=== PATIENT | female | born 1995 | race Caucasian/White ===

== ENCOUNTER 2018-07-15 15:03 | Emergency (ER) | payer SELFPAY ==
--- NOTE | 2018-07-15 15:27 | PDOC ---
Rapid Medical Evaluation Time Seen by Provider: 07/15/18 15:23 Medical Evaluation: I have performed a brief in-person evaluation of this patient. The patient presents with a chief complaint of: difficulty breathing when she is in the cold air. Previous hx of asthma. she does not have an inhaler. went to [facility] for similar symptoms 3 weeks ago - "they ran tests - no results yet - no medicine" Pertinent physical exam findings: CTAB I have ordered the following: nothing The patient will proceed to the ED for further evaluation. Discharge Disposition - Diagnosis Asthma - Referrals - Patient Instructions - Post Discharge Activity
[2018-07-15 15:29] VITALS: BP 110/71; PULSE 68; TEMP 98.7; BMI 22.4
--- NOTE | 2018-07-15 16:34 | PDOC ---
History of Present Illness - General History Source: Patient Exam Limitations: No Limitations - History of Present Illness Initial Comments: 07/15/18 16:48 The patient is a 23 year old female with no significant PMH, who presents to the emergency department with shortness of breath for the past several weeks. Patient is complaining of intermittent shortness of breath when walking outdoors in cold weather. Patient states she came from [place] a couple weeks ago and had been complaining of the same symptoms, at which time they told her she may have asthma but was not given any treatment. Patient had studies done three weeks ago at [facility] but has not received the results yet. She was told she may require a pump but was not prescribed one. No known sick contacts. Denies fever, chills, nausea, vomiting. No shoulder pain. <Gemma Palmer - Last Filed: 07/15/18 16:50> <Noreen Geller - Last Filed: 07/15/18 17:57> - General Chief Complaint: Pain Stated Complaint: PAIN,LT SHOULDER Time Seen by Provider: 07/15/18 15:23 Past History <Gemma Palmer - Last Filed: 07/15/18 16:50> - Past Medical History Asthma: Yes COPD: No CHF: No - Suicide/Smoking/Psychosocial Hx Smoking History: Never smoked Have you smoked in the past 12 months: No Information on smoking cessation initiated: No Hx Alcohol Use: No Drug/Substance Use Hx: No Substance Use Type: None <Noreen Geller - Last Filed: 07/15/18 17:57> - Past Medical History Allergies/Adverse Reactions: Allergies Allergy/AdvReac Type Severity Reaction Status Date / Time No Known Allergies Allergy Verified 07/15/18 15:29 Home Medications: Ambulatory Orders Albuterol 0.083% Nebulizer Nayeli [Ventolin 0.083% Nebulizer Soln -] 1 neb NEB Q4H #20 vial 07/15/18 Albuterol Sulfate Inhaler - [Ventolin HFA Inhaler -] 1 - 2 inh PO Q4H #1 inhaler 07/15/18 predniSONE [Deltasone -] 40 mg PO DAILY #8 tablet 07/15/18 Review of Systems - Review of Systems Able to Perform ROS?: Yes Comments:: ADULT ROS GENERAL/CONSTITUTIONAL: No fever or chills. No weakness. HEAD, EYES, EARS, NOSE AND THROAT: No change in vision. No ear pain or discharge. No sore throat. CARDIOVASCULAR: No chest pain or shortness of breath. RESPIRATORY: No cough, wheezing, or hemoptysis. GASTROINTESTINAL: No nausea, vomiting, diarrhea or constipation. GENITOURINARY: No dysuria, frequency, or change in urination. MUSCULOSKELETAL: No joint or muscle swelling or pain. No neck or back pain. SKIN: No rashes. NEUROLOGIC: No headache, vertigo, loss of consciousness, or change in strength/ sensation. ENDOCRINE: No increased thirst. No abnormal weight change. HEMATOLOGIC/LYMPHATIC: No anemia, easy bleeding, or history of blood clots. ALLERGIC/IMMUNOLOGIC: No hives or skin allergy. <Gemma Palmer - Last Filed: 07/15/18 16:50> *Physical Exam - Vital Signs Last Vital Signs Temp Pulse Resp BP Pulse Ox 98.7 F 68 17 110/71 100 07/15/18 15:24 07/15/18 15:24 07/15/18 15:24 07/15/18 15:24 07/15/18 15:24 - Physical Exam Comments: ADULT EXAM GENERAL: Awake, alert, and fully oriented, in no acute distress HEAD: No signs of trauma EYES: PERRLA, EOMI, sclera anicteric, conjunctiva clear ENT: Auricles normal inspection, hearing grossly normal, nares patent, oropharynx clear without exudates. Moist mucosa NECK: Normal ROM, supple, no lymphadenopathy, JVD, or masses LUNGS: Breath sounds equal, clear to auscultation bilaterally. No wheezes, and no crackles HEART: Regular rate and rhythm, normal S1 and S2, no murmurs, rubs or gallops ABDOMEN: Soft, nontender, normoactive bowel sounds. No guarding, no rebound. No masses EXTREMITIES: Normal range of motion, no edema. No clubbing or cyanosis. No cords, erythema, or tenderness NEUROLOGICAL: Cranial nerves II through XII grossly intact. Normal speech, normal gait SKIN: Warm, Dry, normal turgor. <Gemma Palmer - Last Filed: 07/15/18 16:50> - Vital Signs Last Vital Signs Temp Pulse Resp BP Pulse Ox 98.7 F 68 17 110/71 100 07/15/18 15:24 07/15/18 15:24 07/15/18 15:24 07/15/18 15:24 07/15/18 15:24 <Noreen Geller - Last Filed: 07/15/18 17:57> Medical Decision Making - Medical Decision Making 07/15/18 16:44 A portion of this note was documented by scribe services under my direction. I have reviewed the details of the note, within reason, and agree with the documentation with the following case summary and management plan written by me. <Noreen Geller - Last Filed: 07/15/18 17:57> *DC/Admit/Observation/Transfer - Attestations Scribe Attestion: 07/15/18 16:50 Documentation prepared by Gemma Palmer, acting as director of graduate medical education for Ariel Foster MD. <Gmema Palmer - Last Filed: 07/15/18 16:50> - Discharge Dispostion Decision to Admit order: No <Noreen Geller - Last Filed: 07/15/18 17:57> Diagnosis at time of Disposition: Asthma Qualifiers: Asthma severity: mild Asthma persistence: intermittent Asthma complication type : with acute exacerbation Qualified Code(s): J45.21 - Mild intermittent asthma with (acute) exacerbation - Discharge Dispostion Disposition: HOME Condition at time of disposition: Stable - Referrals Referrals: Junaid Shankar MD, MD [Staff Physician] - - Patient Instructions Printed Discharge Instructions: DI for Asthma -- Child Additional Instructions: You had an asthma exacerbation Take the prednisone 40 mg, for the next four days in the morning Use the breathing treatments every 4 hours as needed for cough or shortness of breath. Use either the inhaler or the fluid, but do not use them at the same time Follow up with your primary care doctor this week Return to the ED for fevers, difficulty breathing, or if you have any changes in your symptoms - Post Discharge Activity Forms/Work/School Notes: Back to Work
[2018-07-15] MEDS ORDERED: predniSONE 20 MG TABLET (UD) PO ONE (16:43)
[2018-07-15] MEDS ORDERED: ALBUTEROL SO4 2.5/IPRATROPIUM 0.5 INH SOL 3 ML VIAL.NEB. NEB ONE ×2 (16:43→16:45)
[2018-07-15] MEDS ORDERED: predniSONE 20 MG TABLET (UD) ONE (16:45)
== END 2018-07-15 18:18 | disposition home or self-care (01) ==
LOC: JERFT 15:03
PROC: 3E0F7GC Introduction of Other Therapeutic Substance into Respiratory Tract, Via Natural or Artificial Opening (ICD-10-PCS; principal; 2018-07-15)
DX: J45.21 Mild intermittent asthma with (acute) exacerbation (principal)
CPT/HCPCS: 99281-25